=== PATIENT | female | born 1930 | race Caucasian/White ===

== ENCOUNTER 2016-09-07 06:38 | Day surgery (SDC) | payer MEDICARE, BC ==
--- NOTE | ~2016-09-07 | OP ---
Record Of Operation [facility] [address] [place]. [address] NAME: ADA MASCORRO : 34 [place]US : [place] [facility] [place] [id number] AGE: 86 ADM/REG DATE : 09/07/16 MR#: [id number] REPORT SERV DATE: 09/07/16 DICTATED BY: HODA LANDERS DATE: 09/07/16 REPORT STATUS : Draft TRANSCRIBED BY: MODL DATE: 09/07/16 DATE OF PROCEDURE: 09/07/2016 PREOPERATIVE DIAGNOSES: 1. History of bladder and ureteral cancer. 2. Bladder lesion. POSTOPERATIVE DIAGNOSES: 1. History of bladder and ureteral cancer. 2. Bladder lesion. PROCEDURE PERFORMED: 1. Cystoscopy with bladder biopsies. 2. Left retrograde pyelogram. SURGEON: Hoda Landers M.D. ANESTHESIA: General. SPECIMEN: Bladder biopsy from the right lateral wall and left lateral wall. ANESTHESIA: General. ESTIMATED BLOOD LOSS: Minimal. COMPLICATIONS: None. 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 She has undergone several TURBTs. She underwent a right nephroureterectomy four months ago. 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 Urine culture was positive. She has been treated with culture- specific Macrobid. TECHNIQUE: Gentamicin was given perioperatively along with a dose of Levaquin. She was brought to the operating room, general anesthesia was administered. Genitals and perineum were prepped and draped in the lithotomy position. Rigid cystoscopy was performed. There were papillary lesions in the bladder. The left UO was normal and effluxing clear. The right UO was surgically absent. There was an area of erythema at the right bladder base extending to the right lateral wall. This included the area where right distal ureter had been resected. Centrally within that area was an area of small papillary excrescence. Additional erythema was seen without any papillary excrescence at the left lateral wall. Both areas were biopsied and the biopsy sites were fulgurated. The dome of the bladder was carefully inspected with a 70-degree lens. There was no lesion at the dome. Hemostasis was confirmed under low filling pressures. Left retrograde pyelogram was performed with a Pollack catheter. There was smooth left ureteral contour with no Record Of Operation [facility] [id number] [place]. [address] NAME: ADA MASCORRO : 34 [place]US : [place] [facility] [place] [id number] AGE: 86 ADM/REG DATE : 09/07/16 MR#: [id number] REPORT SERV DATE: 09/07/16 DICTATED BY: HODA LANDERS DATE: 09/07/16 REPORT STATUS : Draft TRANSCRIBED BY: DIOR DATE: 09/07/16 hydronephrosis, hydroureter, or filling defect. All contrast drained spontaneously at 30 seconds. My impression was that of a normal left retrograde pyelogram. The bladder was drained. The cystoscope was removed. She was taken to the recovery room in satisfactory condition. I will contact her with biopsy results. If this is carcinoma in situ of the bladder, then we will repeat BCG. If this is merely chronic cystitis, and symptoms resolved with the aforementioned antibiotic, then I will see her back in three months. [facility]DIOR Hoda Landers M.D. / [id number] CC: Lucy Mosher D.O.
[~2016-09-07 06:38] MED LIST: ACTOS15 PO; BACDS PO; BACTROINT TOP; CEFT5 PO; EYE INJECTION OPH; GENTEAL 15 ML O15 ML OPH; GENTEAL MILD0.2 % OP; GENTEAL OPH; GLUCOTROL5 PO; GLUCPH PO; GLUCXL5 PO; GLYNASE6 MG PO; HALF81 PO; HEMOCYTET PO; HYDROCORTISO2.5 % TOP; ICAPS AREDS SO1 EACH PO; ICAPS MV PO; JANUVIA100 MG PO; JANUVIA50 PO; LEVAQUIN750 MG PO; LEVEMFLXPN SC; LEVEMIR SC; LIPITOR20 PO; MAGOX4 PO; NORCO1 TA1 PO; PROTONIX PO; PYR200 PO; SILVADENE1 % TOP; TRADJENTA5 MG PO; ULTRAM50 PO; VASELINE TOP; VASOTEC10 PO; VASOTEC20 MG PO; VITAMIN D1000 UNI1 PO; VOLTAREN1 % TOP; XARELTO15 MG PO; XARELTO20 MG PO; ZOCOR20 PO; ZOCOR40 PO; [UNRECOGNIZED DRUG - OTHER] TOP
[2016-11-25] MEDS ORDERED: VOLTAREN1 % TOP (16:15)
[2016-11-25] MEDS ORDERED: AZO STANDARD PO (16:18)
== END 2016-09-07 17:34 | disposition home or self-care (01) ==
LOC: SDC 06:38
PROVIDERS: Urology
PROC: 0TBB8ZX Excision of Bladder, Via Natural or Artificial Opening Endoscopic, Diagnostic (ICD-10-PCS; principal; 2016-09-07 08:30)
DX: C67.9 Malignant neoplasm of bladder, unspecified (principal); N30.20 Other chronic cystitis without hematuria; I10 Essential (primary) hypertension; E11.9 Type 2 diabetes mellitus without complications; E78.00 Pure hypercholesterolemia, unspecified; K21.9 Gastro-esophageal reflux disease without esophagitis; K57.90 Diverticulosis of intestine, part unspecified, without perforation or abscess without bleeding; K22.2 Esophageal obstruction; M19.90 Unspecified osteoarthritis, unspecified site; E66.9 Obesity, unspecified; Z68.31 Body mass index [BMI] 31.0-31.9, adult; Z85.51 Personal history of malignant neoplasm of bladder; Z85.54 Personal history of malignant neoplasm of ureter; Z86.718 Personal history of other venous thrombosis and embolism; Z86.711 Personal history of pulmonary embolism; Z90.5 Acquired absence of kidney; Z96.1 Presence of intraocular lens; Z98.41 Cataract extraction status, right eye; Z98.42 Cataract extraction status, left eye; Z79.4 Long term (current) use of insulin; Z79.899 Other long term (current) drug therapy; Z98.890 Other specified postprocedural states
CPT/HCPCS: 74420; 80053; 82962; 85025; 88305; 93005; C1758; J2405; J3010; Q9967

== ENCOUNTER 2016-10-19 23:54 | Inpatient (IN) | payer MEDICARE, BC ==
--- NOTE | ~2016-10-19 | HP ---
History And Physical [facility] [id number] [place]. [address] NAME: ADA MASCORRO : 34 STATUS : ADM Andreas PAT#: [id number] AGE: 86 ADM/REG DATE : 10/19/16 MR#: [id number] REPORT SERV DATE: 10/20/16 DICTATED BY: HODA LANDERS DATE: 10/20/16 REPORT STATUS : Draft TRANSCRIBED BY: DIOR DATE: 10/20/16 DATE OF ADMISSION: 10/19/2016 CHIEF COMPLAINT: Fever after BCG. HISTORY OF PRESENT ILLNESS: Ms. Mascorro is an 86-year-old with recurrent urothelial cancer. She has had a right nephroureterectomy. 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 She has had two intravesical BCG treatments. She is in the office for treatment #2 yesterday afternoon. The treatment was unremarkable, but upon returning home, she developed fevers and was instructed to come to the hospital for admission. Prior urine cultures have grown E coli species ESBL producing. She received Merrem in the emergency room and is admitted pending culture results. PAST MEDICAL HISTORY: Diabetes, bladder cancer, recurrent UTIs, hypertension, DVT, chronic renal insufficiency. ALLERGIES: NONE KNOWN. MEDICATIONS: Lipitor, Levemir, Protonix, Januvia. SOCIAL HISTORY: , adult daughter is not at the bedside today. No alcohol, tobacco, or illicit drug use. FAMILY HISTORY: Diabetes, stroke. REVIEW OF SYSTEMS: IVC filter was placed, 01/2015. She had shaking chills yesterday. She is feeling better this morning. No shortness of breath. No hematuria. PHYSICAL EXAMINATION: VITAL SIGNS: Blood pressure 143/67, temperature 98.3, pulse 84, respirations 16. GENERAL: Chronically ill-appearing 86-year-old, in no acute distress. HEENT: Sclerae anicteric. LUNGS: Clear. HEART: Regular rhythm. CHEST: Clear anteriorly. ABDOMEN: Soft, nontender, nondistended. Well-healed laparoscopic incisions without hernia. No rebound or guarding. Bladder is not palpably distended. NEURO: She is oriented to person, place, time, and situation. IMAGING: Chest x-ray shows hiatal hernia and an IVC filter. No changes. Creatinine is 1.7, near baseline. White blood cell count this morning is 12, it was 12 yesterday. Voided urine in the ER last night showed turbid urine with large blood, moderate leukocytes, positive nitrites. Lactate 1.3. History And Physical [facility] [address] [place]. [address] NAME: ADA MASCORRO : 34 STATUS : ADM Andreas PAT#: [id number] AGE: 86 ADM/REG DATE : 10/19/16 MR#: [id number] REPORT SERV DATE: 10/20/16 DICTATED BY: HODA LANDERS DATE: 10/20/16 REPORT STATUS : Draft TRANSCRIBED BY: DIOR DATE: 10/20/16 IMPRESSION: Urinary tract infection with fever. PLAN: Patient admitted, started on Merrem pending urine culture results. I will place a Morales catheter to urine. The fact that this is nitrite positive, urine suggests that this is not systemic BCG infection, more likely gram-negative UTI. We will wait for cultures prior to deciding on transition to p.o. antibiotics. [facility]/DIOR Hoda Landers M.D. / [id number] CC: Lucy Mosher D.O.
[2016-10-19 21:54] LABS: ASCORBIC ACID (UR NOT ORDER) NEG (NEG); BILIRUBIN, URINE NEGATIVE (NEG); ER URINALYSIS TAT 0 Hrs 22 Mins; KETONE, URINE NEGATIVE (NEG); LEUKOCYTE ESTERASE(NOT OR MOD (NEG); NITRITE (URINE) POS (NEG)
[2016-10-19 21:55] LABS: WBC (NOT ORDERED) (RFLEX) > 182 (0-5)
[2016-10-19 22:31] LABS: BASOPHILS 0.3 %; BASOPHILS ABSOLUTE 0.03 10/3/uL (0.0-0.16); EOSINOPHILS 1.1 %; EOSINOPHILS ABSOLUTE 0.13 10/3/uL (0.0-0.53); HEMATOCRIT 35.3 % (36.0-48.0); HEMOGLOBIN 11.3 g/dL (12.0-16.0); IMMATURE GRANULOCYTES 0.3 %; IMMATURE GRANULOCYTES ABSOLUTE 0.04 10/3/uL (0.0-0.11); LYMPHOCYTES 3.8 %; LYMPHOCYTES ABSOLUTE 0.45 10/3/uL (0.67-4.30); MEAN CORPUSCULAR HEMOGLOB 27.4 pg (26.0-34.0); MEAN CORPUSCULAR VOLUME 85.5 fL (80-100); MEAN PLATELET VOLUME 9.2 fL (9.2-13.0); MONOCYTES 5.3 %; MONOCYTES ABSOLUTE 0.62 10/3/uL (0.21-1.20); NEUTROPHILS 89.2 %; NEUTROPHILS ABSOLUTE 10.48 10/3/uL (2.02-8.40); PLATELET COUNT 194 10/3/uL (150-400); RBC DISTRIBUTION WIDTH 14.8 % (12.0-16.0); RED CELL COUNT 4.13 10/6/uL (4.0-5.6)
[2016-10-19 22:32] LABS: ER CBC TAT 0 Hrs 10 Mins; MANUAL DIFF NO %; WHITE BLOOD CELLS 11.8 10/3/uL (4.5-10.5)
[2016-10-19 23:52] LABS: A/G RATIO 0.8 (0.7-1.9); ALBUMIN 3.3 G/DL (3.5-5.0); BUN (BLOOD UREA NITROGEN) 33 MG/DL (6-23); CALCIUM, SERUM 8.8 MG/DL (8.5-10.4); CHLORIDE, SERUM 111 MMOL/L (96-112); CREATININE 1.88 MG/DL (0.55-1.02); GFR AFRICAN AMERICAN 28 ML/MIN (>=60); GFR NON AFRICAN AMERICAN 24 ML/MIN (>=60); GLOBULIN 4.1 G/DL (2.5-4.1); POTASSIUM, SERUM 5.4 MMOL/L (3.5-5.3); SGOT(AST) 98 U/L (5-40); SGPT(ALT) 66 U/L (5-65); SODIUM, SERUM 138 MMOL/L (135-148); TOTAL PROTEIN 7.4 G/DL (6.0-8.5)
[2016-10-19 23:53] LABS: ALKALINE PHOSPHATASE 243 U/L (45-117); CO2 (CARBON DIOXIDE) 16 MMOL/L (24-34); GLUCOSE, SERUM 244 MG/DL (60-99); TOTAL BILIRUBIN 1.2 MG/DL (0-1.2)
[2016-10-20 00:40] LABS: LACTATE 1.3 MMOL/L (0.3-2.4)
[2016-10-20] MEDS ORDERED: VASOTEC20 MG PO (01:15)
[2016-10-20] MEDS ORDERED: LIPITOR20 PO (01:16)
[2016-10-20] MEDS ORDERED: PROTONIX PO (01:16)
[2016-10-20] MEDS ORDERED: LEVEMFLXPN SC (01:17)
[2016-10-20] MEDS ORDERED: JANUVIA50 PO (01:19)
[2016-10-20] MEDS ORDERED: VITAMIN D1000 UNI1 PO (01:20)
[2016-10-20] MEDS ORDERED: ICAPS LUTEI1 PO (01:20)
[2016-10-20] MEDS ORDERED: GENTEAL 15 ML O15 ML OPH (01:21)
[2016-10-20] MEDS ORDERED: [UNRECOGNIZED DRUG - OTHER] IV (01:24)
[2016-10-20 06:07] LABS: BASOPHILS 0.2 %; BASOPHILS ABSOLUTE 0.03 10/3/uL (0.0-0.16); EOSINOPHILS 0.4 %; EOSINOPHILS ABSOLUTE 0.05 10/3/uL (0.0-0.53); HEMATOCRIT 32.3 % (36.0-48.0); HEMOGLOBIN 10.6 g/dL (12.0-16.0); IMMATURE GRANULOCYTES 0.6 %; IMMATURE GRANULOCYTES ABSOLUTE 0.07 10/3/uL (0.0-0.11); LYMPHOCYTES 5.8 %; LYMPHOCYTES ABSOLUTE 0.71 10/3/uL (0.67-4.30); MEAN CORPUS HGB CONC 32.8 g/dL (32.0-36.0); MEAN CORPUSCULAR VOLUME 85.2 fL (80-100); MEAN PLATELET VOLUME 9.3 fL (9.2-13.0); MONOCYTES 5.7 %; MONOCYTES ABSOLUTE 0.69 10/3/uL (0.21-1.20); NEUTROPHILS 87.3 %; PLATELET COUNT 190 10/3/uL (150-400); RBC DISTRIBUTION WIDTH 14.7 % (12.0-16.0); RED CELL COUNT 3.79 10/6/uL (4.0-5.6); WHITE BLOOD CELLS 12.2 10/3/uL (4.5-10.5)
[2016-10-20 06:08] LABS: MANUAL DIFF NO %
[2016-10-20 06:20] LABS: A/G RATIO 0.7 (0.7-1.9); ALBUMIN 2.8 G/DL (3.5-5.0); CHLORIDE, SERUM 112 MMOL/L (96-112); CO2 (CARBON DIOXIDE) 17 MMOL/L (24-34); CREATININE 1.76 MG/DL (0.55-1.02); GFR AFRICAN AMERICAN 30 ML/MIN (>=60); GFR NON AFRICAN AMERICAN 26 ML/MIN (>=60); GLOBULIN 3.8 G/DL (2.5-4.1); GLUCOSE, SERUM 207 MG/DL (60-99); POTASSIUM, SERUM 4.9 MMOL/L (3.5-5.3); SGOT(AST) 80 U/L (5-40); SGPT(ALT) 56 U/L (5-65); SODIUM, SERUM 138 MMOL/L (135-148); TOTAL BILIRUBIN 1.1 MG/DL (0-1.2); TOTAL PROTEIN 6.6 G/DL (6.0-8.5)
[2016-10-20 06:25] LABS: ALKALINE PHOSPHATASE 201 U/L (45-117); BUN (BLOOD UREA NITROGEN) 29 MG/DL (6-23); CALCIUM, SERUM 8.8 MG/DL (8.5-10.4)
[2016-10-21 05:08] LABS: BASOPHILS 0.4 %; BASOPHILS ABSOLUTE 0.03 10/3/uL (0.0-0.16); EOSINOPHILS 7.1 %; EOSINOPHILS ABSOLUTE 0.55 10/3/uL (0.0-0.53); HEMATOCRIT 29.8 % (36.0-48.0); IMMATURE GRANULOCYTES 0.6 %; IMMATURE GRANULOCYTES ABSOLUTE 0.05 10/3/uL (0.0-0.11); LYMPHOCYTES 13.9 %; LYMPHOCYTES ABSOLUTE 1.08 10/3/uL (0.67-4.30); MEAN CORPUS HGB CONC 33.6 g/dL (32.0-36.0); MEAN CORPUSCULAR HEMOGLOB 28.7 pg (26.0-34.0); MEAN CORPUSCULAR VOLUME 85.4 fL (80-100); MEAN PLATELET VOLUME 8.9 fL (9.2-13.0); NEUTROPHILS ABSOLUTE 5.37 10/3/uL (2.02-8.40); PLATELET COUNT 158 10/3/uL (150-400); RBC DISTRIBUTION WIDTH 15.2 % (12.0-16.0); RED CELL COUNT 3.49 10/6/uL (4.0-5.6); WHITE BLOOD CELLS 7.8 10/3/uL (4.5-10.5)
[2016-10-21 05:15] LABS: MANUAL DIFF NO %
[2016-10-22 07:20] LABS: BASOPHILS 0.6 %; BASOPHILS ABSOLUTE 0.04 10/3/uL (0.0-0.16); EOSINOPHILS 10.3 %; HEMOGLOBIN 10.9 g/dL (12.0-16.0); IMMATURE GRANULOCYTES 0.7 %; IMMATURE GRANULOCYTES ABSOLUTE 0.05 10/3/uL (0.0-0.11); LYMPHOCYTES 24.4 %; LYMPHOCYTES ABSOLUTE 1.66 10/3/uL (0.67-4.30); MEAN CORPUSCULAR HEMOGLOB 27.3 pg (26.0-34.0); MEAN CORPUSCULAR VOLUME 85.5 fL (80-100); MEAN PLATELET VOLUME 9.2 fL (9.2-13.0); MONOCYTES 5.9 %; NEUTROPHILS 58.1 %; NEUTROPHILS ABSOLUTE 3.96 10/3/uL (2.02-8.40); PLATELET COUNT 200 10/3/uL (150-400); RBC DISTRIBUTION WIDTH 15.3 % (12.0-16.0); WHITE BLOOD CELLS 6.8 10/3/uL (4.5-10.5)
[2016-10-22 07:21] LABS: HEMATOCRIT 34.2 % (36.0-48.0); MANUAL DIFF NO %; MEAN CORPUS HGB CONC 31.9 g/dL (32.0-36.0)
[2016-10-22] MEDS ORDERED: CIP5 PO (09:52)
[2016-11-25] MEDS ORDERED: VOLTAREN1 % TOP (16:15)
[2016-11-25] MEDS ORDERED: AZO STANDARD PO (16:18)
== END 2016-10-22 11:55 | disposition home or self-care (01) | DRG 864 ==
LOC: ER 23:54 → 7NO 23:55
PROVIDERS: Emergency Medicine; Specialist; Urology
DX: R50.9 Fever, unspecified (principal); E11.22 Type 2 diabetes mellitus with diabetic chronic kidney disease; C67.2 Malignant neoplasm of lateral wall of bladder; K44.9 Diaphragmatic hernia without obstruction or gangrene; N18.9 Chronic kidney disease, unspecified; I12.9 Hypertensive chronic kidney disease with stage 1 through stage 4 chronic kidney disease, or unspecified chronic kidney disease; Z90.5 Acquired absence of kidney; Z87.440 Personal history of urinary (tract) infections; Z83.3 Family history of diabetes mellitus; Z82.3 Family history of stroke; Z90.6 Acquired absence of other parts of urinary tract; Z86.718 Personal history of other venous thrombosis and embolism; Z95.828 Presence of other vascular implants and grafts; Z98.890 Other specified postprocedural states
CPT/HCPCS: 71020; 80053; 81001; 82962; 83605; 85025; 87040; 87086; 96365; 99285; A9270-GY; J2185